=== PATIENT | male | born 2000 | race Caucasian/White ===

== ENCOUNTER 2024-05-31 21:01 | Inpatient (IN) | payer MEDICAID ==
[2024-05-31] MEDS: HALOPERIDOL LACTATE 5 MG/ML VIAL IM ONE (22:23)
[2024-05-31] MEDS: DiphenhydrAMINE HCL 50 MG/ML VIAL IM ONE (22:23)
[2024-05-31] MEDS: LORazepam 2 MG/ML VIAL IM ONE (22:24)
[2024-05-31 22:40] LABS: GLUCOMETER DEV NAME(LOC) POC.BV; POC SARS-COV2 AG, FIA NEGATIVE (NEGATIVE)
[2024-05-31 23:59] VITALS: BP 137/81; PULSE 115; RESP 18; TEMP 98.6; O2SAT 95
[2024-06-01 07:19] LABS: BASOPHILS % (AUTO) 0.3 % (0.0-2.0); EOSINOPHILS % (AUTO) 1.7 % (1.0-6.0); HEMATOCRIT 41.1 % (41-53); LYMPHOCYTES % (AUTO) 29.5 % (22.0-44.0); MEAN CORPUSCULAR HEMOGLOBIN 29.2 pg (26.0-34.0); MEAN CORPUSCULAR HGB CONC 34.2 G/dL (31.0-37.0); MEAN CORPUSCULAR VOLUME 86 fL (80-100); MONOCYTES # (AUTO) 0.7 K/uL (0.1-1.0); MONOCYTES % (AUTO) 9.8 % (2.0-9.0); NEUTROPHILS % (AUTO) 58.7 % (40.0-70.0); PLATELET COUNT (AUTO) 298 K/uL (150-450); RED BLOOD CELL COUNT(AUTO) 4.81 MIL/uL (4.50-5.90); RED CELL DISTRIBUTION WIDTH 13.9 % (11.5-14.5); WHITE BLOOD COUNT (AUTO) 6.8 K/uL (4.5-11.0)
[2024-06-01 07:32] LABS: HEMOGLOBIN A1C 5.2 % (3.8-5.6)
[2024-06-01 07:45] LABS: ALANINE AMINOTRANSFERASE 20 U/L (12-78); ALBUMIN 3.7 g/dL (3.4-5.0); ALKALINE PHOSPHATASE 111 U/L (46-116); ANION GAP 9 mmol/L (8-16); ASPARTATE AMINOTRANSFERASE 44 U/L (15-37); BILIRUBIN,TOTAL 0.8 mg/dL (0.1-1.0); CALCIUM, TOTAL 8.8 mg/dL (8.8-10.5); CARBON DIOXIDE 27 mmol/L (22-29); CHLORIDE 102 mmol/L (98-107); CHOL/HDL RATIO 2.3 (4.2-7.3); CHOLESTEROL 158 mg/dL (131-200); CREATININE 0.66 mg/dL (0.60-1.30); FREE T4 (FREE THYROXINE) 1.34 ng/dL (0.76-1.46); GLOMERULAR FILTR. RATE CALC > 60 mL/min (>60); GLUCOSE,RANDOM 79 mg/dL (70-110); HDL CHOLESTEROL 68 mg/dL (40-60); LDL CHOL (CALC.) 79 mg/dL (0-130); POTASSIUM 3.8 mmol/L (3.5-5.1); SODIUM SERUM 138 mmol/L (136-145); THYROID STIMULATING HORMONE 0.92 uIU/mL (0.36-3.74); TOTAL PROTEIN, SERUM 7.7 g/dL (6.4-8.2); TRIGLYCERIDES 54 mg/dL (15-150); UREA NITROGEN, BLOOD 15 mg/dL (7-18)
[2024-06-01 08:03] VITALS: BP 130/61; PULSE 76; RESP 16; TEMP 98.8; O2SAT 96
[2024-06-01] MEDS ORDERED: LOPERAMIDE HCL 2 MG CAPSULE PO PRN (09:00)
[2024-06-01] MEDS ORDERED: MAGNESIUM HYDROXIDE SUSPENSION 30 ML UDCUP PO PRN (09:00)
[2024-06-01] MEDS ORDERED: CloNIDine HCL 0.1 MG TABLET PO PRN (09:00)
[2024-06-01] MEDS ORDERED: ALBUTEROL SULFATE HFA 90 MCG/PUFF 8 GM INHALER IH PRN (09:00)
[2024-06-01] MEDS ORDERED: OMEPRAZOLE 20 MG CAPSULE PO PRN (09:00)
[2024-06-01] MEDS ORDERED: MAG HYDROX/ALUMINUM HYD/SIMETH ES 30 ML SUSPENSION UDCUP PO PRN (09:00)
[2024-06-01] MEDS ORDERED: IBUPROFEN 600 MG TABLET PO PRN (09:00)
[2024-06-01] MEDS ORDERED: BACITRACIN 28 GM OINTMENT TP PRN (09:00)
[2024-06-01] MEDS ORDERED: PETROLATUM,WHITE 28 GM JELLY TP PRN (09:00)
[2024-06-01] MEDS ORDERED: ACETAMINOPHEN 325 MG TABLET PO PRN (09:00)
[2024-06-01] MEDS ORDERED: BENZOCAINE/MENTHOL LOZENGE PO PRN (09:00)
[2024-06-01] MEDS ORDERED: DOCUSATE SODIUM 100 MG CAPSULE PO PRN (09:00)
[2024-06-01] MEDS: LORazepam 2 MG TABLET PO PRN (09:23)
[2024-06-01] MEDS: HALOPERIDOL 5 MG TABLET PO PRN (09:23)
[2024-06-01] MEDS: DIVALPROEX SODIUM 500 MG DR TABLET PO SCH (17:18)
[2024-06-01] MEDS: ZOLPIDEM TARTRATE 10 MG TABLET PO PRN (20:14)
[2024-06-01 20:21] VITALS: BP 112/65; PULSE 95; RESP 18; TEMP 98.4; O2SAT 97
[2024-06-02] MEDS: ARIPiprazole 10 MG TABLET PO SCH (08:03)
[2024-06-02 08:40] LABS: APPEARANCE,URINE TURBID (CLEAR); BILIRUBIN,URINE NEGATIVE (NEGATIVE); COLOR,URINE DARK YELLOW (YELLOW); GLUCOSE, URINE (UA) TRACE mg/dL (NEGATIVE); KETONES,URINE 40-60 mg/dL (NEGATIVE); LEUKOCYTE ESTERASE ,URINE NEGATIVE (NEGATIVE); NITRATE,URINE NEGATIVE (NEGATIVE); OCCULT BLOOD,URINE NEGATIVE (NEGATIVE); PROTEIN,URINE 30-70 mg/dL (NEGATIVE); SPECIFIC GRAVITIY, URINE 1.034 (1.003-1.030)
[2024-06-02 08:48] LABS: ALCOHOL, URINE DRUG SCREEN NEGATIVE (NEGATIVE); AMPHET/METH SCREEN,URINE POSITIVE (NEGATIVE); BARBITURATE SCREEN, URINE NEGATIVE (NEGATIVE); BENZODIAZEPINES SCREEN,URINE NEGATIVE (NEGATIVE); CANNABINOID SCREEN,URINE POSITIVE (NEGATIVE); COCAINE SCREEN,URINE NEGATIVE (NEGATIVE); METHADONE SCREEN, URINE NEGATIVE (NEGATIVE); OPIATE SCREEN,URINE NEGATIVE (NEGATIVE); PHENCYCLIDINE SCREEN,URINE NEGATIVE (NEGATIVE)
[2024-06-02] MEDS: NICOTINE POLACRILEX 2 MG LOZENGE PO PRN (08:51)
[2024-06-02 08:59] VITALS: BP 121/75; PULSE 95; RESP 18; TEMP 98; O2SAT 99
[2024-06-02 09:27] LABS: AMORPHOUS SEDIMENT,UR Many /LPF (None Seen); BACTERIA,URINE None Seen /HPF (None Seen); RBC,URINE None Seen /HPF (0-2); SQUAMOUS EPITHELIAL CELL,UR None Seen /LPF (None Seen); WBC,URINE None Seen /HPF (0-5)
[2024-06-02] MEDS: ONDANSETRON HCL 4 MG TABLET PO PRN (13:43)
[2024-06-02] MEDS: SULFAMETHOX/TRIMETH DS 800-160 MG/TABLET PO SCH (16:55)
[2024-06-02 19:40] VITALS: BP 135/64; PULSE 92; RESP 17; TEMP 98.4; O2SAT 98
[2024-06-02 20:07] VITALS: BP 135/65; PULSE 92; RESP 17; TEMP 98.4; O2SAT 98
[2024-06-02] MEDS: QUEtiapine FUMARATE 300 MG TABLET PO SCH (20:26)
[2024-06-03 08:16] VITALS: BP 108/65; PULSE 88; RESP 16; TEMP 97.7; O2SAT 95
[2024-06-03] MEDS ORDERED: ARIP10TA38 PO (19:44)
[2024-06-03] MEDS ORDERED: DIVA-112 PO (19:45)
[2024-06-03] MEDS ORDERED: SULF-261 PO (19:46)
== END 2024-06-03 20:31 | disposition home or self-care (01) | DRG 751 ==
LOC: B3A 21:02
PROVIDERS: ADMIT Psychiatry & Neurology Psychiatry; ATTEND Psychiatry & Neurology Psychiatry
DX: F29 Unspecified psychosis not due to a substance or known physiological condition (principal); R45.851 Suicidal ideations; Z20.822 Contact with and (suspected) exposure to COVID-19; F41.9 Anxiety disorder, unspecified; G47.00 Insomnia, unspecified; K59.00 Constipation, unspecified; Z59.00 Homelessness unspecified; Z72.0 Tobacco use
CPT/HCPCS: 80053; 80061; 80307; 81001; 83036; 84439; 84443; 85025; J1200; J1630; J2060; Q0162